=== PATIENT | male | born 1960 ===

== ENCOUNTER 2018-06-22 10:16 | Emergency (ER) | payer OTHER ==
[2018-06-22 10:19] VITALS: TEMP 98.8; O2SAT 98; BMI 32.5
[2018-06-22] MEDS ORDERED: Tdap Vaccine 0.5 ml Vial (10-64 yrs) IM ONE ×2 (10:44→10:50)
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
[2018-06-22 12:42] VITALS: BP 149/88; PULSE 78; RESP 13
== END 2018-06-22 12:41 | disposition home or self-care (01) ==
LOC: H.ER 10:16
DX: S00.83XA Contusion of other part of head, initial encounter (principal); S09.90XA Unspecified injury of head, initial encounter; Y04.0XXA Assault by unarmed brawl or fight, initial encounter; Y92.89 Other specified places as the place of occurrence of the external cause